=== PATIENT | female | born 1975 | race Caucasian/White ===

== ENCOUNTER 2017-10-26 10:00 | Emergency (ER) | payer OTHER ==
[~2017-10-26] VITALS: Ht 149.9 cm; Wt 43.1 kg
[~2017-10-26 10:00] MED LIST: ATEN50; CIPR250 PO; HYDACE5 PO; IBUP200; NAPR500 PO; OXYACE7.5T PO; RXOXYACE PO; RXPHEN200 PO; SULTRIDS PO; TRAM50 PO
[2017-10-26 11:11] LABS: BASOPHILS ABSOLUTE AUTO 0.07 K/mm3 (0.00-0.23); BASOPHILS PERCENT AUTO 0 % (0-2); EOSINOPHILS ABSOLUTE AUTO 0.01 K/mm3 (0.00-0.68); EOSINOPHILS PERCENT AUTO 0 % (0-6); Hematocrit 45.1 % (33.0-51.0); Hemoglobin 15.6 g/dL (11.5-16.0); IMMATURE GRAN ABSOLUTE AUTO 0.21 K/mm3 (0.00-0.10); IMMATURE GRAN PERCENT AUTO 1 % (0-1); LYMPHOCYTES ABSOLUTE AUTO 2.28 K/mm3 (0.84-5.20); LYMPHOCYTES PERCENT AUTO 8 % (21-46); MONOCYTES ABSOLUTE AUTO 1.03 K/mm3 (0.16-1.47); MONOCYTES PERCENT AUTO 4 % (4-13); Mean Corpuscular HGB 30.7 pg (26.0-34.0); Mean Corpuscular HGB Conc 34.6 g/dL (31.5-36.5); Mean Corpuscular Volume 89 fL (80-100); Mean Platelet Volume 10.1 fL (9.1-12.4); NEUTROPHILS ABSOLUTE AUTO 24.98 K/mm3 (1.96-9.15); NEUTROPHILS PERCENT AUTO 88 % (41-73); Platelet Count 421 K/mm3 (150-400); RDW Coefficient Variation 12.1 % (11.7-14.2); RDW Standard Deviation 39.7 fL (35.1-46.3); Red Blood Cell Count 5.08 M/mm3 (3.80-5.20); White Blood Cell Count 28.58 K/mm3 (4.00-11.30)
[2017-10-26] MEDS ORDERED: Hydrocodone-Ap1 EA23 PO (11:18)
[2017-10-26 11:24] LABS: Source, Urine Clean Catch
[2017-10-26 11:30] LABS: Alanine Aminotransfer (ALT/SGP 22 U/L (12-78); Albumin, Blood 4.7 g/dL (3.4-5.0); Albumin/Globulin Ratio 1.2 (0.8-1.8); Alk Phos 95 U/L (50-136); Anion Gap 8 mmol/L (6-16); Aspartate Aminotrans (AST/SGOT 24 U/L (12-37); Bilirubin, Total 0.4 mg/dL (0.1-1.0); Blood Urea Nitrogen 7 mg/dL (8-24); Bun/Creatinine Ratio 13.2 (12.0-20.0); CO2, Blood 26 mmol/L (21-32); Calcium, Blood 9.7 mg/dL (8.5-10.1); Chloride, Blood 109 mmol/L (98-108); Creatinine, Blood 0.53 mg/dL (0.40-1.00); Globulin, Blood 3.9 g/dL (2.2-4.0); Glomerular Filtration Rate >60 (60-); Glucose, Blood 109 mg/dL (70-99); Sodium, Blood 143 mmol/L (136-145); Total Protein, Blood 8.6 g/dL (6.4-8.2)
[2017-10-26 12:00] LABS: Bilirubin, Urine Neg (Neg); Blood, Urine 1+ (Neg); Glucose Qualitative, Urine Neg (Neg); Ketones, Urine 4+ (Neg); Leukocyte Esterase, Urine 1+ (Neg); Nitrite, Urine Neg (Neg); Protein, Urine 1+ (Neg); Urobilinogen, Urine NORM (Normal)
[2017-10-26 12:02] LABS: Appearance, Urine Cloudy (Clear); Color, Urine Yellow (P-Yellow)
[2017-10-26 12:03] LABS: Squamous Epithelial Cells Mod /hpf (Few)
[2017-10-26 12:04] LABS: Bacteria Rare /hpf; Mucus Mod (0-Heavy); Red Blood Cells, Urine 0-2 /hpf (0-2)
[2017-10-26] MEDS ORDERED: Zofran Odt8 MG SL (15:54)
[2017-10-26] MEDS ORDERED: Percocet 5-3251 EACH PO (15:54)
== END 2017-10-26 16:00 | disposition home or self-care (01) ==
LOC: ER 10:00
PROVIDERS: Emergency Medicine
DX: R11.2 Nausea with vomiting, unspecified (principal); R19.7 Diarrhea, unspecified; Z88.1 Allergy status to other antibiotic agents; Z88.8 Allergy status to other drugs, medicaments and biological substances; Z79.899 Other long term (current) drug therapy
CPT/HCPCS: 36415; 74177; 80053; 81001; 83690; 85025; 87086; 96361; 96374; 96375; 96376; 99284-25; J1170; J2405; J3490; J7120; Q9967

== ENCOUNTER → 2017-11-17 | Outpatient (CLI) | payer OTHER ==
[~2017-11-17] MED LIST changes: +Hydrocodone-Ap1 EA23 PO; +Percocet 5-3251 EACH PO; +Zofran Odt8 MG SL
[2017-11-17 08:49] LABS: Adenovirus F 40/41 Not Detected (NOT DETECT); Astrovirus Not Detected (NOT DETECT); Campylobacter Sp Not Detected (NOT DETECT); Cryptosporidium Not Detected (NOT DETECT); Cyclospora Cayetanensis Not Detected (NOT DETECT); E. Coli O157 Not Detected (NOT DETECT); Entamoeba Histolytica Not Detected (NOT DETECT); Enteroaggregative E. coli-EAEC Not Detected (NOT DETECT); Enteropathogenic E. coli-EPEC Not Detected (NOT DETECT); Enterotoxigenic E. coli-ETEC Not Detected (NOT DETECT); Giardia Lamblia Not Detected (NOT DETECT); Norovirus GI/GII Not Detected (NOT DETECT); Plesiomonas Shigelloides Not Detected (NOT DETECT); Rotavirus A Not Detected (NOT DETECT); Salmonella Sp Not Detected (NOT DETECT); Sapovirus Not Detected (NOT DETECT); Shiga Toxin-prod E. coli-STEC Not Detected (NOT DETECT); Shigella/Enteroin E. coli-EIEC Not Detected (NOT DETECT); Vibrio Cholerae Not Detected (NOT DETECT); Vibrio Sp Not Detected (NOT DETECT); Yersinia Enterocolitica Not Detected (NOT DETECT)
== END | disposition home or self-care (01) ==
LOC: LAB EV 06:12
PROVIDERS: Student in an Organized Health Care Education/Training Program
DX: K52.9 Noninfective gastroenteritis and colitis, unspecified (principal); R10.13 Epigastric pain
CPT/HCPCS: 87507

== ENCOUNTER 2018-12-06 17:47 | Emergency (ER) | payer OTHER ==
[~2018-12-06] VITALS: Ht 149.9 cm; Wt 43.5 kg
[~2018-12-06 17:47] MED LIST changes: +OMEPRAZOLE MAGN20 MG PO
[2018-12-06] MEDS ORDERED: KETO10 PO (18:46)
[2018-12-06] MEDS ORDERED: Cyclobenzaprine5 MG PO (18:46)
== END 2018-12-06 19:00 | disposition home or self-care (01) ==
LOC: ER 17:47
DX: S16.1XXA Strain of muscle, fascia and tendon at neck level, initial encounter (principal); Z87.891 Personal history of nicotine dependence; Z88.1 Allergy status to other antibiotic agents; Z88.8 Allergy status to other drugs, medicaments and biological substances; Z79.899 Other long term (current) drug therapy; V89.2XXA Person injured in unspecified motor-vehicle accident, traffic, initial encounter
CPT/HCPCS: 96372; 99283-25; J1885

== ENCOUNTER → 2019-03-26 | Outpatient (CLI) | payer OTHER ==
[~2019-03-26] MED LIST changes: +Cyclobenzaprine5 MG PO; +KETO10 PO
[2019-03-26 13:54] LABS: U Amphetamine Screen Not Detected; U Barbituate Screen Not Detected; U Benzodiazapine Screen Not Detected; U Buprenorphine Screen Not Detected; U Cannabinoids Screen Not Detected; U Cocaine Screen Not Detected; U Methadone Screen Not Detected; U Methamphetamine Screen Not Detected; U Opiates Screen DETECTED; U Oxycodone Screen Not Detected; U Propoxyphene Screen Not Detected
== END | disposition home or self-care (01) ==
LOC: LAB 12:35 → LAB SHORT 12:35
PROVIDERS: Nurse Practitioner Family
DX: Z51.81 Encounter for therapeutic drug level monitoring (principal); Z79.899 Other long term (current) drug therapy

== ENCOUNTER 2024-05-21 06:00 | Day surgery (SDC) | payer OTHER ==
[2024-05-21] VITALS (9 sets, daily range): BP systolic 105–125; BP diastolic 57–77
[~2024-05-21] VITALS: Ht 149.9 cm; Wt 47.9 kg
[~2024-05-21 06:00] MED LIST changes: -ATEN50; +ATEN50 PO; +PROAIR RESPICL90 MCG PO
[2024-05-21] MEDS ORDERED: Lactated Ringer's 1,000 ML IV SCH (06:25)
[2024-05-21] MEDS ORDERED: Bupivacaine 0.5% HCl 5 MG/ML 30MLVIAL ONE (06:58)
[2024-05-21] MEDS ORDERED: Ondansetron HCl 2 MG / ML 2ML Vial ONE (07:14)
[2024-05-21] MEDS ORDERED: propofoL 20 ML IV ONE (07:14)
[2024-05-21] MEDS ORDERED: Lidocaine HCl 2% 20 ML MDV ONE (07:14)
[2024-05-21] MEDS ORDERED: Dexamethasone Sod Phos 10 MG/ML 1ML VIAL ONE (07:14)
[2024-05-21] MEDS ORDERED: FentaNYL Citrate 50 MCG/ML 2 ML Injection ONE ×2 (07:14→09:32)
[2024-05-21] MEDS ORDERED: Sugammadex Sodium 200 MG/2ML SDV (100 MG/ML) ONE (07:14)
[2024-05-21] MEDS ORDERED: Rocuronium Bromide 10 MG/ML 5ML Injection IV ONE (07:14)
[2024-05-21] MEDS ORDERED: Midazolam HCl 1MG / ML 2ML Vial IV PRN (07:15)
[2024-05-21] MEDS ORDERED: Ketorolac Tromethamine 30mg Vial ONE (07:15)
[2024-05-21] MEDS ORDERED: Dexmedetomidine HCL 200 MCG / 2 ML ONE (07:17)
[2024-05-21] MEDS ORDERED: Metoclopramide HCl 5MG / ML 2ML Vial IV PRN (07:20)
[2024-05-21] MEDS ORDERED: Ondansetron HCl 2 MG / ML 2ML Vial IV PRN (07:20)
[2024-05-21] MEDS ORDERED: Lidocaine HCl 1% 5 ML SYR INJ ONE (07:20)
[2024-05-21] MEDS ORDERED: HYDROmorphone HCl/Pf 1MG SYR IV PRN (07:20)
[2024-05-21] MEDS ORDERED: FentaNYL Citrate 50 MCG/ML 2 ML Injection IV PRN ×3 (07:20)
[2024-05-21] MEDS ORDERED: OxyCODONE 5 mg/Acetamin 325 mg TABLET PO PRN (09:25)
[2024-05-21] MEDS ORDERED: Metoclopramide HCl 5MG / ML 2ML Vial ONE (09:30)
[2024-05-21] MEDS ORDERED: HYDROmorphone HCl/Pf 1MG SYR ONE (09:40)
--- NOTE | 2024-05-21 10:30 | NUR ---
Patient up to Ambulate independently. Gait steady. Discharge instructions reviewed with patient. Patient verbalizes understanding. Copy given to patient to take home. Dressing to procedure site clean X4, dry, intact with no visible drainage, swelling, erythema or bruising noted. Discharged via wheelchair to private car for ride home.
== END 2024-05-21 23:00 | disposition home or self-care (01) ==
LOC: ORSCMMR 06:00 → ORD 07:30 → ORSCMMR 07:30
PROVIDERS: Obstetrics & Gynecology
PROC: 0UB74ZX Excision of Bilateral Fallopian Tubes, Percutaneous Endoscopic Approach, Diagnostic (ICD-10-PCS; principal; 2024-05-21 07:30)
PROC: 8E0W4CZ Robotic Assisted Procedure of Trunk Region, Percutaneous Endoscopic Approach (ICD-10-PCS; principal; 2024-05-21 07:30)
PROC: 0U5F4ZZ Destruction of Cul-de-sac, Percutaneous Endoscopic Approach (ICD-10-PCS; principal; 2024-05-21 07:30)
DX: N80.9 Endometriosis, unspecified (principal); K66.0 Peritoneal adhesions (postprocedural) (postinfection); J44.9 Chronic obstructive pulmonary disease, unspecified; Z87.891 Personal history of nicotine dependence; Z79.899 Other long term (current) drug therapy
CPT/HCPCS: 88302; 88305; A9270; J1100; J1171; J1885; J2250; J2405; J2704; J2765; J3010; J7120